=== PATIENT | female | born 1975 | race Caucasian/White ===

== ENCOUNTER → 2018-03-26 09:09 | Outpatient (CLI) | payer OTHER, SELFPAY ==
[2018-03-26 09:40] LABS: Add Manual Diff / Slide Review NO; Eosinophils Percent Auto 2.5 % (2-4); Hematocrit 40.7 % (36-46); Hemoglobin 13.6 g/dL (12.0-16.0); Lymphocytes Percent Auto 33.2 % (25-40); Mean Corpuscular HGB Conc 33.5 % (30-36); Mean Corpuscular Hemoglobin 29.6 PG (26-34); Mean Corpuscular Volume 88.5 fL (80-100); Monocytes Percent Auto 7.5 % (3-14); Neutrophils Absolute Auto 2900 /uL (3000-5900); Neutrophils Percent Auto 55.8 % (50-75); Platelet Count 235 X10^3/uL (150-400); Red Cell Distribution Width 13.3 % (11.6-14.8); White Blood Cell Count 5.2 X10^3/uL (4.5-11.0)
[2018-03-26 09:52] LABS: Alanine Aminotransferase 23 IU/L (9-52); Albumin 4.1 g/dL (3.5-5.0); Albumin Globulin Ratio 1.4 (1.0-2.8); Alkaline Phosphatase 48 U/L (38-126); Aspartate Aminotransferase 21 IU/L (14-36); BUN Creatinine Ratio 21.4 (6-22); Bilirubin Total 0.5 mg/dL (0.2-1.3); Blood Urea Nitrogen 15 mg/dL (7-17); Calcium 8.8 mg/dL (8.4-10.2); Carbon Dioxide 25 mmol/L (22-32); Chloride 108 mmol/L (98-107); Cholesterol 198 mg/dL (140-199); Estimated Glomerular Filt Rate > 60.0 mL/min (>60); Globulin 2.9 g/dL (1.7-4.1); Glucose 103 mg/dL (70-100); HDL Cholesterol 57 mg/dL (40-60); HEMOLYSIS < 15 (0-50); LDL Cholesterol Calculated 119 mg/dL (<100); Potassium 4.5 mmol/L (3.4-5.1); Sodium 140 mmol/L (137-145); Triglycerides 111 mg/dL (35-150)
[2018-03-26 10:00] LABS: HEMOLYSIS < 15 (0-50); Iron 90 ug/dL (37-170)
[2018-03-26 10:13] LABS: Percent Iron Saturation 28 % (15-50); Total Iron Binding Capacity 325 ug/dL (265-497); Transferrin 258 mg/dL (206-381)
[2018-03-26 10:20] LABS: Free T4, Direct Thyroxine 1.85 ng/dL (0.78-2.19)
[2018-03-26 10:25] LABS: Ferritin 11.3 ng/mL (6.27-137)
[2018-03-26 10:34] LABS: Thyroid Stimulating Hormone 0.21 uIU/mL (0.47-4.68)
== END ==
PROVIDERS: Family Provider Physician Assistant; PCP Physician Assistant; Visit Provider Physician Assistant
DX: E03.9 Hypothyroidism, unspecified (principal); N92.4 Excessive bleeding in the premenopausal period
CPT/HCPCS: 36415; 80053; 80061; 82728; 83540; 83550; 84439; 84443; 85025

== ENCOUNTER → 2018-06-30 09:12 | Outpatient (CLI) | payer OTHER, SELFPAY ==
--- NOTE | 2018-06-30 11:27 | DI.MG.S_ITS ---
BILATERAL DIGITAL SCREENING MAMMOGRAM 3D/2D WITH CAD: 06/30/2018 CLINICAL: Routine screening. Comparison is made to exam dated: 04/27/2016 mammogram - [facility]. There are scattered fibroglandular elements in both breasts. Current study was also evaluated with a Computer Aided Detection (CAD) system. No significant masses, calcifications, or other findings are seen in either breast. There has been no significant interval change. IMPRESSION: NEGATIVE There is no mammographic evidence of malignancy. A 1 year screening mammogram is recommended. This exam was interpreted at Station ID: [id number]. NOTE: For mammograms, a report in lay terms will be sent to the patient. Approximately 15% of breast malignancies will not be visualized mammographically. In the management of a palpable breast mass, a negative mammogram must not discourage biopsy of a clinically suspicious lesion. Electronically Signed By: Desirae johnson/florecita:06/30/2018 13:01:57 letter sent: Normal Exam ACR BI-RADS Category 1: Negative 3341F
[2018-06-30 12:40] LABS: Thyroid Stimulating Hormone 0.72 uIU/mL (0.47-4.68)
== END ==
PROVIDERS: Family Provider Physician Assistant; PCP Physician Assistant; Visit Provider Physician Assistant
DX: Z12.31 Encounter for screening mammogram for malignant neoplasm of breast (principal); E03.9 Hypothyroidism, unspecified; R79.89 Other specified abnormal findings of blood chemistry
CPT/HCPCS: 36415; 77063; 77067; 84443

== ENCOUNTER → 2019-07-03 10:52 | Outpatient (CLI) | payer OTHER, SELFPAY ==
--- NOTE | 2019-07-03 10:53 | DI.MG.S_ITS ---
BILATERAL DIGITAL SCREENING MAMMOGRAM 3D/2D WITH CAD: 07/03/2019 CLINICAL: Routine screening. Comparison is made to exams dated: 06/30/2018 mammogram - [facility] and 04/27/2016 mammogram - [facility]. There are scattered fibroglandular elements in both breasts. Current study was also evaluated with a Computer Aided Detection (CAD) system. No significant masses, calcifications, or other findings are seen in either breast. There has been no significant interval change. IMPRESSION: NEGATIVE There is no mammographic evidence of malignancy. A 1 year screening mammogram is recommended. This exam was interpreted at Station ID: [id number]. NOTE: For mammograms, a report in lay terms will be sent to the patient. Approximately 15% of breast malignancies will not be visualized mammographically. In the management of a palpable breast mass, a negative mammogram must not discourage biopsy of a clinically suspicious lesion. Electronically Signed By: Meredith miller/florecita:07/03/2019 12:40:31 letter sent: Normal Exam ACR BI-RADS Category 1: Negative 3341F
== END ==
PROVIDERS: Family Provider Physician Assistant; PCP Physician Assistant; Visit Provider Physician Assistant
DX: Z12.31 Encounter for screening mammogram for malignant neoplasm of breast (principal)
CPT/HCPCS: 77063; 77067

== ENCOUNTER → 2020-06-20 16:34 | Outpatient (CLI) | payer OTHER, SELFPAY ==
[2020-06-20 17:53] LABS: COVID19 -Nasal RAPID Negative (Negative)
== END ==
PROVIDERS: Family Provider Physician Assistant; PCP Physician Assistant; Visit Provider Physician Assistant
DX: Z11.59 Encounter for screening for other viral diseases (principal); J02.9 Acute pharyngitis, unspecified
CPT/HCPCS: 87070; 87077; 87147; 87635

== ENCOUNTER → 2021-05-24 16:23 | Outpatient (CLI) | payer OTHER, SELFPAY ==
[2021-05-26 14:13] LABS: Free T3, Triiodothyronine Free 3.69 pg/mL (2.77-5.27); Free T4, Direct Thyroxine 1.46 ng/dL (0.78-2.19)
[2021-05-26 14:27] LABS: Thyroid Stimulating Hormone 2.98 uIU/mL (0.47-4.68)
== END ==
PROVIDERS: Family Provider Physician Assistant; PCP Student in an Organized Health Care Education/Training Program; Referring Provider Student in an Organized Health Care Education/Training Program; Visit Provider Student in an Organized Health Care Education/Training Program
DX: E03.9 Hypothyroidism, unspecified (principal)
CPT/HCPCS: 36415; 84439; 84443; 84481

== ENCOUNTER 2021-07-21 09:45 | Outpatient (RCR) | payer OTHER, SELFPAY ==
--- NOTE | 2021-06-30 15:57 | PT.OIE ---
Current Diagnoses Other female genital prolapse (06/30/21) Past Medical History (Last Updated 05/28/21 @ 09:23 by Misael Garvin MD) Allergic rhinitis (01/09/11) Diverticular disease (Unknown) History of mandibular surgery (1989) History of surgery (1974) Hypothyroidism (Unknown) Past Surgical History (Last Updated 01/15/18 @ 14:38 by Laura Jacobsen LPN) History of mandibular surgery (1989) History of surgery (1974) History of tonsillectomy Visit Care Team Role Provider Type Fabiola Taylor PA-C Family Provider Advanced Post Office Clerk Specialty: Medical Address: [address], [facility] Email: [email or web address] Misael Garvin MD Attending Provider Physician Primary Care Provider Referring Provider Specialty: Internal Medicine Address: [address] [place] [address], [facility] Email: [email or web address] Physical Therapy Initial Evaluation PT-OP-A Visit Information Start: 06/30/21 07:28 Freq: Status: Active Protocol: Document 06/30/21 08:15 AMB (Rec: 06/30/21 11:58 AMB [email or web address]) Out-Patient Physical Therapy Visit Information Visit Information Visit Type Initial Evaluation Visit Start Time 08:15 Visit Stop Time 09:00 Total Visit Minutes 45 Visit Number 1 PT-OP-B Current Condition Start: 06/30/21 07:28 Freq: Status: Active Protocol: Document 06/30/21 08:15 AMB (Rec: 06/30/21 09:11 AMB [id number]) Current Condition History of Current Condition Onset Date 2008 Current Complaints prolapse History of Current Condition Dennis had a baby in 2008. Slowly worsening prolapse since that time. Has to stand up and let urine be caught in toilet paper after voiding urine, but that is the only leaking she has. Had an episiotomy and probably over 2 hours of pushing. Denies chronic constipation and chronic cough, although did have one episode of bad constipation where she had to vaginally splint. Low back drives me crazy, feels like core is weak. Prior Functional Status Baseline Function- ADL's Independent Baseline Function- Mobility Independent Current Functional Impairments (Reported) Functional Limitations- ADL's Denies discomfort from prolapse, more difficulty with inability to get urine out all the way with voiding. Personal Factors Other Personal Factors That May Effect Low back pain Therapy/Recovery PT-OP-I Pelvic Floor Start: 06/30/21 07:28 Freq: Status: Active Protocol: Document 06/30/21 08:15 AMB (Rec: 06/30/21 15:57 AMB [email or web address]) Pelvic Floor Assessment Urine Pelvic Floor Surgery No Urinary Symptoms Prolapse,Incomplete Emptying, Falling Out Feeling/Heavy Leakage Size Small Leaks Per Day 3/week Voiding Frequency 2-3 hours Nocturia 2 Bowel Other Bowel Symptoms denies constipation Prolapse Cystocele Grade 2 Rectocele Grade 3 Perineal Descent Resting Present Bearing Present Contraction Ability Voluntary Contraction Moderate Voluntary Relaxation Moderate Manual Muscle Testing Left 3 Manual Muscle Testing Right 3 Manual Muscle Testing Anterior 3 Manual Muscle Testing Posterior 4 Muscle Endurance (Seconds) 15 Number of Quick Contractions In 10 5 Seconds PT-OP-T Assessment and Plan Start: 06/30/21 07:28 Freq: Status: Active Protocol: Document 06/30/21 08:15 AMB (Rec: 06/30/21 15:57 AMB [email or web address]) Physical Therapy Assessment Rehab Potential Rehabilitation Potential Good Evaluation Complexity Number of Personal Factors/Comorbidities 1-2 Number of Body Systems Impaired 1-2 Clinical Presentation at Evaluation Stable Impairments Impairments Functional Activities, Functional Mobility Goals Two Impairment Prolapse Long-Term Goal (LTG) Mona will void completely without leaking afterwards. LTG Duration 8 weeks One Impairment Strength Short Term Goal (STG) Mona will contract her pelvic floor in standing for 10 seconds. STG Duration 4 weeks Hvac Services Professional Goal (LTG) Mona will contract her pelvic floor while moving from sit to stand. LTG Duration 8 weeks Assessment Summary Assessment Mona attends physical therapy with a long history of prolapse that is making it difficult for her to completely void urine so that she leaks when she stands up from voiding. She had decent strength but could improve and will benefit from behavioral training as well. She will benefit from physical therapy to continue to instruct in an appropriate pelvic floor and core strengthening program. Physical Therapy Plan Frequency and Duration Frequency of Treatment 1x/Week Duration of Treatment 8 weeks Plan of Care Start Date 06/30/21 Plan of Care End Date 08/25/21 Therapeutic Interventions Therapeutic Interventions Home Exercise Program,Manual Therapy,Neuromuscular Re- education,Self-Care/Home Management,Soft Tissue Mobilization,Therapeutic Activities,Therapeutic Exercises Modalities Biofeedback,Electric Stimulation Next Visit Focus/Plan Next Note Type Treatment Note Next Visit Plan follow up on quick flicks and long holds, start with sEMG, progress to katelyn pelvic floor while working on TA too .
--- NOTE | 2021-06-30 15:58 | PT.OPPOC ---
Physical, Occupational & Speech Therapy At [facility] Current Diagnoses Other female genital prolapse (06/30/21) Visit Care Team Role Provider Type Fabiola Taylor PA-C Family Provider Advanced Product Manager Medical Device Specialty: Medical Address: [facility], [address] [place], [address] Email: [email or web address] Misael Garvin MD Attending Provider Physician Primary Care Provider Referring Provider Specialty: Internal Medicine Address: [address] [place] [address], [facility] [address], [address] Email: [email or web address] Plan Of Care PT-OP-T Assessment and Plan Start: 06/30/21 07:28 Freq: Status: Active Protocol: Document 06/30/21 08:15 AMB (Rec: 06/30/21 15:57 AMB [email or web address]) Physical Therapy Assessment Rehab Potential Rehabilitation Potential Good Evaluation Complexity Number of Personal Factors/Comorbidities 1-2 Number of Body Systems Impaired 1-2 Clinical Presentation at Evaluation Stable Impairments Impairments Functional Activities, Functional Mobility Goals Two Impairment Prolapse Shearing Machine Tender Goal (LTG) Mona will void completely without leaking afterwards. LTG Duration 8 weeks One Impairment Strength Short Term Goal (STG) Mona will contract her pelvic floor in standing for 10 seconds. STG Duration 4 weeks Shearing Machine Tender Goal (LTG) Mona will contract her pelvic floor while moving from sit to stand. LTG Duration 8 weeks Assessment Summary Assessment oMna attends physical therapy with a long history of prolapse that is making it difficult for her to completely void urine so that she leaks when she stands up from voiding. She had decent strength but could improve and will benefit from behavioral training as well. She will benefit from physical therapy to continue to instruct in an appropriate pelvic floor and core strengthening program. Physical Therapy Plan Frequency and Duration Frequency of Treatment 1x/Week Duration of Treatment 8 weeks Plan of Care Start Date 06/30/21 Plan of Care End Date 08/25/21 Therapeutic Interventions Therapeutic Interventions Home Exercise Program,Manual Therapy,Neuromuscular Re- education,Self-Care/Home Management,Soft Tissue Mobilization,Therapeutic Activities,Therapeutic Exercises Modalities Biofeedback,Electric Stimulation Next Visit Focus/Plan Next Note Type Treatment Note Next Visit Plan follow up on quick flicks and long holds, start with sEMG, progress to katelyn pelvic floor while working on TA too . Plan of Care Dates Plan of Care Start Date 06/30/21 Plan of Care End Date 08/25/21 Electronically Signed by: Demetrice Ocampo, PT 06/30/21 [id number] Please Sign and Return: I have reviewed this Plan of Care and certify that the skilled therapy services above are required to meet the patient?s needs. Physician Signature Date Printed Name and Credentials Clinical Instructor Signature Printed Name and Credentials
--- NOTE | 2021-07-14 11:56 | PT.OTN ---
Current Diagnoses Other female genital prolapse (07/14/21) Physical Therapy Treatment Note PT-OP-A Visit Information Start: 06/30/21 07:28 Freq: Status: Active Protocol: Document 07/14/21 09:44 AMB (Rec: 07/14/21 10:17 AMB [id number]) Out-Patient Physical Therapy Visit Information Visit Information Visit Type Treatment Note Visit Start Time 09:45 Visit Stop Time 10:30 Total Visit Minutes 45 Visit Number 2 PT-OP-B Current Condition Start: 06/30/21 07:28 Freq: Status: Active Protocol: Document 06/30/21 08:15 AMB (Rec: 06/30/21 09:11 AMB [id number]) Current Condition History of Current Condition Onset Date 2008 Current Complaints prolapse History of Current Condition Dennis had a baby in 2008. Slowly worsening prolapse since that time. Has to stand up and let urine be caught in toilet paper after voiding urine, but that is the only leaking she has. Had an episiotomy and probably over 2 hours of pushing. Denies chronic constipation and chronic cough, although did have one episode of bad constipation where she had to vaginally splint. Low back drives me crazy, feels like core is weak. Prior Functional Status Baseline Function- ADL's Independent Baseline Function- Mobility Independent Current Functional Impairments (Reported) Functional Limitations- ADL's Denies discomfort from prolapse, more difficulty with inability to get urine out all the way with voiding. Personal Factors Other Personal Factors That May Effect Low back pain Therapy/Recovery PT-OP-C Subjective Start: 06/30/21 07:28 Freq: Status: Active Protocol: Document 07/14/21 09:45 AMB (Rec: 07/14/21 11:56 AMB [email or web address]) OP-PT Subjective Patient Comments Patient Comments Mona stated that she is doing her exercises seated mostly, the long holds are more challenging. PT-OP-I Pelvic Floor Start: 06/30/21 07:28 Freq: Status: Active Protocol: Document 06/30/21 08:15 AMB (Rec: 06/30/21 15:57 AMB [email or web address]) Pelvic Floor Assessment Urine Pelvic Floor Surgery No Urinary Symptoms Prolapse,Incomplete Emptying, Falling Out Feeling/Heavy Leakage Size Small Leaks Per Day 3/week Voiding Frequency 2-3 hours Nocturia 2 Bowel Other Bowel Symptoms denies constipation Prolapse Cystocele Grade 2 Rectocele Grade 3 Perineal Descent Resting Present Bearing Present Contraction Ability Voluntary Contraction Moderate Voluntary Relaxation Moderate Manual Muscle Testing Left 3 Manual Muscle Testing Right 3 Manual Muscle Testing Anterior 3 Manual Muscle Testing Posterior 4 Muscle Endurance (Seconds) 15 Number of Quick Contractions In 10 5 Seconds PT-OP-Q Treatments Start: 06/30/21 07:28 Freq: Status: Active Protocol: Document 07/14/21 09:45 AMB (Rec: 07/14/21 11:56 AMB [email or web address]) Therapeutic Exercises Supine Exercises 1 Supine Exercise Name supine march with TA and pelvic floor Sitting Exercises 1 Sitting Exercise Name sit to stand Comments contract pelvic floor Neuro Re-Education Treatment Other Activities 1 Details sEMG Comments quick flicks, long holds, then roll ins good hold PT-OP-T Assessment and Plan Start: 06/30/21 07:28 Freq: Status: Active Protocol: Document 07/14/21 09:44 AMB (Rec: 07/14/21 10:17 AMB [id number]) Physical Therapy Assessment Goals Two Impairment Prolapse Staple Processing Machine Operator Goal (LTG) Mona will void completely without leaking afterwards. LTG Duration 8 weeks One Impairment Strength Short Term Goal (STG) Mona will contract her pelvic floor in standing for 10 seconds. STG Duration 4 weeks Longterm Goal (LTG) Mona will contract her pelvic floor while moving from sit to stand. LTG Duration 8 weeks Assessment Summary Assessment sEMG ax 31, avg 15 for long holds. for quick flicks max 19, avg 8. Good understanding of pelvic floor contract, did ask pt to try to contract when moving from sit to stand. Physical Therapy Plan Next Visit Focus/Plan Next Note Type Treatment Note Next Visit Plan follow up on quick flicks and long holds, start with sEMG, progress to katelyn pelvic floor while working on TA too .
--- NOTE | 2021-07-21 11:37 | PT.OTN ---
Current Diagnoses Other female genital prolapse (07/21/21) Physical Therapy Treatment Note PT-OP-A Visit Information Start: 06/30/21 07:28 Freq: Status: Active Protocol: Document 07/21/21 09:45 AMB (Rec: 07/21/21 10:33 AMB [id number]) Out-Patient Physical Therapy Visit Information Visit Information Visit Type Treatment Note Visit Start Time 09:45 Visit Stop Time 10:30 Total Visit Minutes 45 Visit Number 3 PT-OP-B Current Condition Start: 06/30/21 07:28 Freq: Status: Active Protocol: Document 06/30/21 08:15 AMB (Rec: 06/30/21 09:11 AMB [id number]) Current Condition History of Current Condition Onset Date 2008 Current Complaints prolapse History of Current Condition Dennis had a baby in 2008. Slowly worsening prolapse since that time. Has to stand up and let urine be caught in toilet paper after voiding urine, but that is the only leaking she has. Had an episiotomy and probably over 2 hours of pushing. Denies chronic constipation and chronic cough, although did have one episode of bad constipation where she had to vaginally splint. Low back drives me crazy, feels like core is weak. Prior Functional Status Baseline Function- ADL's Independent Baseline Function- Mobility Independent Current Functional Impairments (Reported) Functional Limitations- ADL's Denies discomfort from prolapse, more difficulty with inability to get urine out all the way with voiding. Personal Factors Other Personal Factors That May Effect Low back pain Therapy/Recovery PT-OP-C Subjective Start: 06/30/21 07:28 Freq: Status: Active Protocol: Document 07/21/21 09:45 AMB (Rec: 07/21/21 11:37 AMB [email or web address]) OP-PT Subjective Patient Comments Patient Comments Mona has tried katelyn pelvic floor after voiding and then that makes her leak when she lets go of the kegel once in standing. PT-OP-I Pelvic Floor Start: 06/30/21 07:28 Freq: Status: Active Protocol: Document 06/30/21 08:15 AMB (Rec: 06/30/21 15:57 AMB [email or web address]) Pelvic Floor Assessment Urine Pelvic Floor Surgery No Urinary Symptoms Prolapse,Incomplete Emptying, Falling Out Feeling/Heavy Leakage Size Small Leaks Per Day 3/week Voiding Frequency 2-3 hours Nocturia 2 Bowel Other Bowel Symptoms denies constipation Prolapse Cystocele Grade 2 Rectocele Grade 3 Perineal Descent Resting Present Bearing Present Contraction Ability Voluntary Contraction Moderate Voluntary Relaxation Moderate Manual Muscle Testing Left 3 Manual Muscle Testing Right 3 Manual Muscle Testing Anterior 3 Manual Muscle Testing Posterior 4 Muscle Endurance (Seconds) 15 Number of Quick Contractions In 10 5 Seconds PT-OP-Q Treatments Start: 06/30/21 07:28 Freq: Status: Active Protocol: Document 07/21/21 09:45 AMB (Rec: 07/21/21 11:36 AMB [email or web address]) Therapeutic Exercises Supine Exercises 2 Supine Exercise Name roll in/roll out Comments with #3 t band 1 Supine Exercise Name supine march with TA and pelvic floor Comments added table top tap down Sitting Exercises 1 Sitting Exercise Name sit to stand Comments contract pelvic floor PT-OP-T Assessment and Plan Start: 06/30/21 07:28 Freq: Status: Active Protocol: Document 07/21/21 09:45 AMB (Rec: 07/21/21 11:36 AMB [email or web address]) Physical Therapy Assessment Goals Two Impairment Prolapse Law Professor Goal (LTG) Mona will void completely without leaking afterwards. LTG Duration 8 weeks One Impairment Strength Short Term Goal (STG) Mona will contract her pelvic floor in standing for 10 seconds. STG Duration 4 weeks Law Professor Goal (LTG) Mona will contract her pelvic floor while moving from sit to stand. LTG Duration 8 weeks Assessment Summary Assessment Mona is doing well with her exercises, but continues to have leaking when standing up from the toilet. Physical Therapy Plan Next Visit Focus/Plan Next Note Type Treatment Note Next Visit Plan Follow up on roll in and roll out exercises with tap down with TA and pelvic floor
--- NOTE | 2021-10-02 15:52 | PT.OPDS ---
Current Diagnoses Other female genital prolapse (07/21/21) Visit Care Team Role Provider Type Fabiola Taylor PA-C Family Provider Advanced Radioisotope Production Operator Specialty: Medical Address: [facility], [address] [place] [address], [id number] Email: [email or web address] Misael Garvin MD Attending Provider Physician Primary Care Provider Referring Provider Specialty: Internal Medicine Address: [address] [place] [address], [facility] [[email or web address] [address], [place], [address] Email: [email or web address] Visit Number Visit Number 3 Discharge Summary PT-OP-B Current Condition Start: 06/30/21 07:28 Freq: Status: Active Protocol: Document 06/30/21 08:15 AMB (Rec: 06/30/21 09:11 AMB [id number]) Current Condition History of Current Condition Onset Date 2008 Current Complaints prolapse History of Current Condition Dennis had a baby in 2008. Slowly worsening prolapse since that time. Has to stand up and let urine be caught in toilet paper after voiding urine, but that is the only leaking she has. Had an episiotomy and probably over 2 hours of pushing. Denies chronic constipation and chronic cough, although did have one episode of bad constipation where she had to vaginally splint. Low back drives me crazy, feels like core is weak. Prior Functional Status Baseline Function- ADL's Independent Baseline Function- Mobility Independent Current Functional Impairments (Reported) Functional Limitations- ADL's Denies discomfort from prolapse, more difficulty with inability to get urine out all the way with voiding. Personal Factors Other Personal Factors That May Effect Low back pain Therapy/Recovery PT-OP-C Subjective Start: 06/30/21 07:28 Freq: Status: Active Protocol: Document 07/21/21 09:45 AMB (Rec: 07/21/21 11:37 AMB [email or web address]) OP-PT Subjective Patient Comments Patient Comments Mona has tried katelyn pelvic floor after voiding and then that makes her leak when she lets go of the kegel once in standing. PT-OP-I Pelvic Floor Start: 06/30/21 07:28 Freq: Status: Active Protocol: Document 06/30/21 08:15 AMB (Rec: 06/30/21 15:57 AMB [email or web address]) Pelvic Floor Assessment Urine Pelvic Floor Surgery No Urinary Symptoms Prolapse,Incomplete Emptying, Falling Out Feeling/Heavy Leakage Size Small Leaks Per Day 3/week Voiding Frequency 2-3 hours Nocturia 2 Bowel Other Bowel Symptoms denies constipation Prolapse Cystocele Grade 2 Rectocele Grade 3 Perineal Descent Resting Present Bearing Present Contraction Ability Voluntary Contraction Moderate Voluntary Relaxation Moderate Manual Muscle Testing Left 3 Manual Muscle Testing Right 3 Manual Muscle Testing Anterior 3 Manual Muscle Testing Posterior 4 Muscle Endurance (Seconds) 15 Number of Quick Contractions In 10 5 Seconds PT-OP-T Assessment and Plan Start: 06/30/21 07:28 Freq: Status: Active Protocol: Document 10/02/21 15:50 AMB (Rec: 10/02/21 15:52 AMB [id number]) Physical Therapy Assessment Goals Two Impairment Prolapse Technical Stenographer Goal (LTG) Mona will void completely without leaking afterwards. LTG Duration 8 weeks One Impairment Strength Short Term Goal (STG) Mona will contract her pelvic floor in standing for 10 seconds. STG Duration 4 weeks Technical Stenographer Goal (LTG) Mona will contract her pelvic floor while moving from sit to stand. LTG Duration 8 weeks Assessment Summary Assessment Mona has not attended physical therapy in the past 2 months. she canceled her remaining appointments. At her last scheduled appointment (she attended a total of 3) she was doing her exercises but was continuing to have symptoms when standing up from the toilet. Physical Therapy Plan Discharge Physical Therapy Discharge Reasons No Longer Attending PT
== END 2021-10-03 09:34 ==
LOC: PHYS 09:45
PROVIDERS: Family Provider Physician Assistant; PCP Student in an Organized Health Care Education/Training Program; Referring Provider Student in an Organized Health Care Education/Training Program; Visit Provider Student in an Organized Health Care Education/Training Program
DX: N81.89 Other female genital prolapse (principal)
CPT/HCPCS: 97110; 97112; 97161

== ENCOUNTER → 2022-04-06 11:18 | Outpatient (CLI) | payer OTHER, SELFPAY ==
--- NOTE | 2022-04-06 11:20 | DI.MG.S_ITS ---
BILATERAL DIGITAL SCREENING MAMMOGRAM 3D/2D WITH CAD: 04/06/2022 CLINICAL: Routine screening. Comparison is made to exams dated: 06/30/2018 mammogram - [facility] and 04/27/2016 mammogram - [facility]. There are scattered areas of fibroglandular density in both breasts (category b / 25%-50% glandular tissue). Current study was also evaluated with a Computer Aided Detection (CAD) system. No significant masses, calcifications, or other findings are seen in either breast. There has been no significant interval change. IMPRESSION: NEGATIVE There is no mammographic evidence of malignancy. A 1 year screening mammogram is recommended. Based on the Tyrer Cuzick model (a risk assessment model) the patient's lifetime risk is 11.5% and her 10 year risk is 2.4%. According to the ACR, ACS, and NCCN guidelines, an annual breast MRI exam along with mammogram is recommended if the patient's lifetime risk is 20% or greater. This exam was interpreted at Station ID: [id number]. NOTE: For mammograms, a report in lay terms will be sent to the patient. Approximately 15% of breast malignancies will not be visualized mammographically. In the management of a palpable breast mass, a negative mammogram must not discourage biopsy of a clinically suspicious lesion. Electronically Signed By: Diego bhatt/florecita:04/06/2022 13:47:28 letter sent: Normal Exam ACR BI-RADS Category 1: Negative 3341F
== END ==
PROVIDERS: Family Provider Physician Assistant; PCP Student in an Organized Health Care Education/Training Program; Referring Provider Student in an Organized Health Care Education/Training Program; Visit Provider Student in an Organized Health Care Education/Training Program
DX: Z12.31 Encounter for screening mammogram for malignant neoplasm of breast (principal)
CPT/HCPCS: 77063; 77067

== ENCOUNTER → 2023-09-06 09:42 | Outpatient (CLI) | payer OTHER, SELFPAY ==
[2023-09-06 10:30] LABS: Add Manual Diff / Slide Review NO; Basophils Absolute Auto 0 /uL (0-100); Basophils Percent Auto 0.8 % (0-2); Eosinophils Absolute Auto 200 /uL (0-450); Eosinophils Percent Auto 3.2 % (2-4); Hematocrit 36.6 % (36-46); Hemoglobin 12.1 g/dL (12.0-16.0); Lymphocytes Absolute Auto 1800 /uL (1100-4500); Lymphocytes Percent Auto 31.1 % (25-40); Mean Corpuscular HGB Conc 33.1 % (30-36); Mean Corpuscular Volume 84.5 fL (80-100); Monocytes Absolute Auto 500 /uL (0-900); Monocytes Percent Auto 7.8 % (3-14); Neutrophils Absolute Auto 3400 /uL (1500-7000); Neutrophils Percent Auto 57.1 % (50-75); Platelet Count 284 X10^3/uL (150-400); Red Blood Cell Count 4.33 X10^6/uL (4.0-5.2); Red Cell Distribution Width 14.5 % (11.6-14.8); White Blood Cell Count 5.9 X10^3/uL (4.5-11.0)
[2023-09-06 11:03] LABS: Alanine Aminotransferase 23 IU/L (<35); Albumin 4.1 g/dL (3.5-5.0); Albumin Globulin Ratio 1.3 (1.0-2.8); Alkaline Phosphatase 56 U/L (38-126); Aspartate Aminotransferase 27 IU/L (14-36); BUN Creatinine Ratio 20.3 (6-22); Bilirubin Total 0.5 mg/dL (0.2-1.3); Blood Urea Nitrogen 14 mg/dL (7-17); Calcium 9.4 mg/dL (8.4-10.2); Carbon Dioxide 26 mmol/L (22-32); Chloride 103 mmol/L (98-107); Cholesterol 243 mg/dL (140-199); Estimated Glomerular Filt Rate > 60 mL/min (>60); Globulin 3.2 g/dL (1.7-4.1); Glucose 101 mg/dL (70-100); HDL Cholesterol 66 mg/dL (40-60); HEMOLYSIS < 15 (0-50); LDL Cholesterol Calculated 140 mg/dL (<100); Potassium 4.3 mmol/L (3.4-5.1); Sodium 136 mmol/L (137-145); Total Protein 7.3 g/dL (6.3-8.2); Triglycerides 183 mg/dL (35-150)
[2023-09-06 11:16] LABS: Free T3, Triiodothyronine Free 2.85 pg/mL (2.77-5.27); Free T4, Direct Thyroxine 1.53 ng/dL (0.78-2.19)
[2023-09-06 11:21] LABS: Hemoglobin A1C% w Est Avg Glu 5.2 % (4.0-6.0)
[2023-09-06 11:29] LABS: Thyroid Stimulating Hormone 9.56 uIU/mL (0.47-4.68)
[2023-09-06 11:49] LABS: HIV 1 & 2 Ab/Ag 4th Gen Combo NEGATIVE (NEGATIVE); Hep C Virus Ab w/Reflex Quant NEGATIVE s/c (NEGATIVE)
[2023-09-06 11:51] LABS: Vitamin B12 514 pg/mL (239-931)
== END ==
PROVIDERS: Family Provider Physician Assistant; PCP Family Medicine; Referring Provider Family Medicine; Visit Provider Family Medicine
DX: Z11.59 Encounter for screening for other viral diseases (principal); Z11.4 Encounter for screening for human immunodeficiency virus [HIV]; F32.81 Premenstrual dysphoric disorder; E03.9 Hypothyroidism, unspecified; E66.9 Obesity, unspecified; R20.0 Anesthesia of skin; N32.89 Other specified disorders of bladder
CPT/HCPCS: 36415; 80053; 80061; 82607; 83036; 84439; 84443; 84481; 85025; 86803; 87389

== ENCOUNTER → 2024-01-10 11:25 | Outpatient (CLI) | payer OTHER, SELFPAY ==
--- NOTE | 2024-01-10 11:28 | DI.RAD.S_ITS ---
PROCEDURE: XR CHEST 2V INDICATIONS: Chronic cough, wheezing for 6 weeks TECHNIQUE: 2 views of the chest were acquired. COMPARISON: None. FINDINGS: Surgical changes and devices: None. Lungs and pleura: Lungs are clear. No pleural effusions or pneumothorax. Peribronchial cuffing. Mediastinum: Mediastinal contours are normal. Heart size is normal. Bones and chest wall: No suspicious bony abnormalities. Soft tissues appear unremarkable. IMPRESSION: Peribronchial cuffing, typically indicating infectious or inflammatory bronchitis. Dictated by: Viral Herrera M.D. on 01/10/2024 at 14:49 Approved by: Viral Herrera M.D. on 01/10/2024 at 14:49
== END ==
PROVIDERS: Family Provider Physician Assistant; PCP Family Medicine; Referring Provider Family Medicine; Visit Provider Family Medicine
DX: R05.3 Chronic cough (principal)
CPT/HCPCS: 71046

== ENCOUNTER 2024-02-10 21:06 | Emergency (ER) | payer OTHER, SELFPAY ==
[2024-02-10 21:50] VITALS: BP 127/81; PULSE 91; RESP 18; TEMP 37.1; O2SAT 98; BMI 21.4
[2024-02-11 00:14] VITALS: BP 138/88; PULSE 90; RESP 18; O2SAT 97
--- NOTE | 2024-02-11 02:18 | ED_ITS ---
HPI - Abdominal Pain General Chief Complaint: Urogenital-Female Stated Complaint: severe rectal pain Time Seen by Provider: 02/11/24 01:51 Source: patient Mode of arrival: Family Vehicle History of Present Illness HPI narrative: Patient is a 48-year-old healthy female who presents today with rectal pain. She reports she does have a history of hemorrhoids but over last week her rectal pain has gotten significantly worse. She has been doing Sitz bath which is the only thing that helps. The topical hxro-hbf-akverti steroid cream does not work. She does some blood when she wipes. She is made sure that she does not get constipated she is taking MiraLax she is having bowel movements. She feels a little bit bloated but severe rectal pain. No fever chills nausea or vomiting. This feels like her regular hemorrhoids but they are just not going away. She is also tried topical lidocaine and that also does not help. Related Data Home Medications Medication Instructions Recorded Confirmed MULTIVITAMIN (Fruity Vitamin) 1 ctb PO Q DAY ##0 07/11/11 01/08/24 oxybutynin chloride 5 mg tablet 5 mg PO BEDTIME PRN 09/06/23 01/08/24 levothyroxine 150 mcg capsule 150 mcg PO DAILY 01/08/24 01/08/24 Previous Rx's Medication Instructions Recorded semaglutide 0.25 mg or 0.5 mg (2 0.25 mg (0.368 mL) SUBCUT QWEEK #3 02/04/24 mg/3 mL) subcutaneous pen injector mL hydrocortisone acetate 25 mg 25 mg SC BEDTIME PRN hemorrhoids 7 02/11/24 rectal suppository (Anusol-HC) weeks #24 ea Allergies Allergy/AdvReac Type Severity Reaction Status Date / Time benzonatate Allergy Severe Hives Verified 02/04/24 13:40 Sulfa (Sulfonamide Allergy Severe SEVERE RASH Verified 02/04/24 13:40 Antibiotics) [SULFA (SULFONAMIDE ANTIBIOTICS)] Patient History Medical History Diverticular disease (Unknown) Hypothyroidism (Unknown) Allergic rhinitis (01/09/11) Surgical History History of surgery (1974) History of mandibular surgery (1989) History of tonsillectomy Family History Mother Hypothyroidism, unspecified type Essential hypertension Grandfather Myocardial infarction Social History Smoking Status: Never smoker Smoking Status: Never smoker Exam Initial Vital Signs Initial Vital Signs: Vital Signs Temperature 98.8 F 02/10/24 21:50 Pulse Rate 91 H 02/10/24 21:50 Respiratory Rate 18 02/10/24 21:50 Blood Pressure 127/81 02/10/24 21:50 Pulse Oximetry 98 02/10/24 21:50 Oxygen Delivery Method Room Air 02/10/24 21:50 GENERAL: Tearful alert 48-year-old female CARDIOVASCULAR: peripheral pulses in tact, cap refill <2 sec RESPIRATORY: No respiratory distress, speaks in full sentences without difficulty ABDOMEN: Soft, nontender, no guarding or rebound RECTAL: No external hemorrhoids no thrombosed hemorrhoid rectal exam extremely tender internal hemorrhoids patient really did not tolerate internal exam EXTREMITIES: Normal range of motion, no clubbing or edema. Neurovascularly intact NEUROLOGICAL: Cranial nerves II through XII grossly intact. Normal gait and speech. SKIN: Warm, dry, no petechiae, no rashes or lesions. Course Orders Ordered: Discontinued Medications Hydrocortisone (Hydrocortisone 25 Mg Supp) 25 mg SC NOW ONE Stop: 02/11/24 02:29 Last Admin: 02/11/24 02:43 Dose: Not Given Documented By: NARCISO Phenyleph/Shark Oil/Min Oil/Petrol (Phenyleph/Mineral Oil/Petrolat 57 Gm Oint) 1 applic SC PRN PRN PRN Reason: Hemorrhoids Vital Signs Vital signs: Vital Signs - 8 hr 02/11/24 00:14 02/11/24 03:02 Pulse Rate 90 91 H Respiratory Rate 18 18 Blood Pressure 138/88 133/95 H Pulse Oximetry 97 98 Oxygen Delivery Method Room Air Room Air MDM - Abdominal Pain MDM Narrative Medical decision making narrative: Patient 48-year-old female history of hemorrhoids presenting today is rectal pain ongoing for about 1 week. She has no external hemorrhoids no significant thrombosed hemorrhoid. But she definitely is tender on internal exam. History and exam consistent with internal hemorrhoids. Unfortunately we do not have any sort of suppositories here for her. She is fine with going home and getting a prescription. No concern for abscess bowel obstruction or other etiology at this time. Discharge Plan Departure Patient Disposition: Home Clinical Impression: Hemorrhoids Instructions: DI for Hemorrhoids Activity Restrictions/Additional Instructions: *You have been diagnosed with hemorrhoids *What to do: At this time you do need suppositories continue the Sitz baths. I do recommend that you be evaluated by General surgery or GI for hemorrhoid surgery Continue MiraLax do not get constipated *Continue to take medications as directed Anusol suppository--> [email or web address] can start tomorrow any time *Follow up with your primary care provider in 2-3 days or call [phone] *Return to ER if you should have increasing pain increasing bleeding or any new, worsening or concerning symptoms Prescriptions: New hydrocortisone acetate [Anusol-HC] 25 mg suppository 25 mg SC BEDTIME PRN (Reason: hemorrhoids) 49 Days Qty: 24 0RF No Action oxybutynin chloride 5 mg tablet 5 mg PO BEDTIME PRN levothyroxine 150 mcg capsule 150 mcg PO DAILY semaglutide 0.25 mg or 0.5 mg (2 mg/3 mL) pen injector 0.25 mg SUBCUT QWEEK Qty: 3 2RF Rx Instructions: for 4 weeks; then increase to 0.5 mg every week MULTIVITAMIN (Fruity Vitamin) 1 ctb PO Q DAY Qty: 0 Referrals: Krunal Albarado MD [Primary Care Provider] - Stand Alone Forms: Patient Portal/API
[2024-02-11 03:02] VITALS: BP 133/95; PULSE 91; RESP 18; O2SAT 98
== END 2024-02-11 03:03 | disposition home or self-care (01) ==
PROVIDERS: Emergency Provider Emergency Medicine; Family Provider Physician Assistant; PCP Family Medicine
DX: K64.9 Unspecified hemorrhoids (principal)
CPT/HCPCS: 99281; 99283

== ENCOUNTER 2024-02-21 13:58 | Day surgery (SDC) | payer OTHER, SELFPAY ==
[2024-02-20 14:54] VITALS: BMI 31.7
--- NOTE | 2024-02-21 | PATH_ITS ---
[facility] Accession Number: [id number] No. of containers..01 Tissue . 01 Material submitted: . hemorrhoids - HEMORRHOID . 01 Diagnosis: HEMORRHOID, EXCISION: Benign hemorrhoid tissue. No evidence of neoplasm. MRV 02/26/2024 1746 Local . 01 Electronically signed: . Nahun Oakes MD, PhD, Pathologist NPI- [id number] . 01 Gross description: . HEMORRHOID: Received in formalin is 1 fragment of hays soft tissue measuring 2.0 x 1.2 x 1.1 cm. Tissue is inked. Specimen is sectioned and submitted in chemical sales representative sections in 1 cassette. /BRADY 02/25/2024 0121 Local . 01 Pathologist provided ICD-10: K64.9 . 01 CPT . 883030 Specimen Comment: A courtesy copy of this report has been sent to [phone] Performed at: [address] [facility] [address], [place], [place] [id number] MD Vlad Felix MD Phone: [phone]
[2024-02-21] MEDS: LACTATED RINGERS 1,000 ML 21 ML IV (14:17)
[2024-02-21 14:32] VITALS: BP 131/84; PULSE 90; RESP 16; TEMP 37.2; O2SAT 97; BMI 31.7
--- NOTE | 2024-02-21 14:48 | PM.PREOP ---
Pre-operative Note Interval Note History & Physical reviewed/Exam performed by Physician: Yes Changes to H&P: No
--- NOTE | 2024-02-21 15:00 | SUR.OPER ---
Lithotomy on padded OR bed, head on pillow, arms secured on padded arm boards at <90 degrees abduction. Legs secured in padded yellow fins stirrups.
[2024-02-21] MEDS: EPINEPHRINE INJ (15:13)
[2024-02-21] MEDS: BUPIVACAINE 0.25% INJ (15:13)
[2024-02-21] MEDS: BUPIVACAINE LIPOSOME 266 MG/20 ML VIAL INJ (15:14)
[2024-02-21 15:45] VITALS: BP 104/59; PULSE 93; RESP 16; TEMP 36.6; O2SAT 96
[2024-02-21 15:50] VITALS: BP 129/76; PULSE 94; RESP 18; O2SAT 94
--- NOTE | 2024-02-21 15:53 | P.OP_ITS ---
Operative Date/Time/Diagnoses Date of procedure: 02/21/24 Time of procedure: 15:53 Pre-op diagnosis: rectal pain Post-op diagnosis: other (internal hemorrhoids) Procedure & Clinicians Procedure: excisional hemorrhoidectomy x 2 Same procedure as scheduled: Yes Indications: 49 y.o woman with rectal pain here for exam under anesthesia and hemo rrhoidectomy Surgeon: Yasir Sims Click Yes if Unassisted: Yes Anesthesia Type: General Operative Notes Findings: Congested ulcerated hemorrhoids with both internal and external component Specimen(s): other (Hemorrhoids) Estimated Blood Loss (mL): 30 Procedure in detail: Patient was brought to the operating room placed supine on the table. Bilateral lower extremity compression devices were applied. General anesthesia was induced and they were intubated with an endotracheal tube. They were then placed into prone position and appropriately padded. They were then prepped and draped in usual sterile fashion. Time-out was performed. Rectal block was performed by injecting 20 mL of Exparel with 40 mL of 0.25% bupivacaine into the intersphincteric groove. An internal examination of the anal canal was made. There were 2 columns of ulcerated congested prolapsing hemorrhoids with both internal and external component in the left lateral and right posterior positions. Each colon was grasped elevated and excised with electrocautery off the internal sphincter. The mucosal defect was then closed with a running 3-0 Vicyrl suture. Hemostasis was checked. The specimens were passed off the field. Wound was irrigated with saline. Gelfoam coated in Dibucaine ointment 1% was then placed into the anal canal. Sponge and instrument counts were correct at the end of the procedure. They emerged from anesthesia were extubated and transferred to the postoperative care unit in stable condition. Complications: none Post-operative Condition: stable Disposition: same day surgery
[2024-02-21 16:00] VITALS: BP 135/75; PULSE 86; RESP 15; O2SAT 99
[2024-02-21] MEDS: ONDANSETRON 4 MG/2 ML INJ IV (16:03)
[2024-02-21] MEDS: METOCLOPRAMIDE 10 MG/2 ML INJ IV (16:04)
[2024-02-21 16:05] VITALS: BP 135/83; PULSE 77; RESP 12; TEMP 36.1; O2SAT 99
[2024-02-21] MEDS: ACETAMINOPHEN 325 MG TABLET 650 MG PO (16:10)
[2024-02-21] MEDS: CODEINE/ACETAMINOPHEN 30/300 TABLET 1 TAB PO (16:10)
[2024-02-21 16:20] VITALS: BP 133/76; PULSE 82; RESP 16; O2SAT 99
== END 2024-02-21 16:30 | disposition home or self-care (01) ==
PROVIDERS: Family Provider Physician Assistant; PCP Family Medicine; Referring Provider Surgery; Visit Provider Surgery
PROC: (CPT 46260; principal; 2024-02-21 15:15)
DX: K64.8 Other hemorrhoids (principal)
CPT/HCPCS: 46260; 81025; C9290; J0171; J1100; J1885; J2405; J2704; J2765; J3010

== ENCOUNTER 2024-04-09 18:11 | Emergency (ER) | payer OTHER, SELFPAY ==
[2024-04-09 18:21] VITALS: BP 140/85; PULSE 73; RESP 16; TEMP 36.5; O2SAT 97; BMI 32.0
--- NOTE | 2024-04-09 19:26 | ED_ITS ---
HPI - Extremity Problem General Chief complaint: Extremity Problem,Nontraumatic Stated complaint: lt leg swelling, sent by [facility] Time Seen by Provider: 04/09/24 18:50 Source: patient Mode of arrival: Ambulatory Limitations: no limitations History of Present Illness HPI Narrative: 49-year-old female sent over from the walk-in clinic for evaluation of swelling to her left lower extremity. She noticed some discomfort in her left leg earlier this week but the swelling started within the past 24 hours. No chest pain or shortness of breath. No trauma. Describes the pain in the back of her calf and behind her left knee. No history of blood clots. Related Data Home Medications Medication Instructions Recorded Confirmed MULTIVITAMIN (Fruity Vitamin) 1 ctb PO Q DAY ##0 07/11/11 02/20/24 levothyroxine 150 mcg capsule 150 mcg PO DAILY 01/08/24 02/21/24 Previous Rx's Medication Instructions Recorded menthol 0.44 %-zinc oxide 20.6 % 1 applic topical Q1H PRN skin 02/12/24 topical paste irritation #57 grams nitroglycerin 0.4 % (w/w) rectal 1 inch OR BID #30 grams 02/12/24 ointment acetaminophen 500 mg capsule 1,000 mg (2 x 500 mg) PO Q6H PRN 02/21/24 pain #60 caps celecoxib 200 mg capsule (Celebrex) 200 mg PO BID #20 caps 02/21/24 oxycodone 5 mg tablet 5 mg PO Q6H PRN pain #20 tabs 02/27/24 Allergies Allergy/AdvReac Type Severity Reaction Status Date / Time benzonatate Allergy Severe Hives Verified 02/21/24 14:19 Sulfa (Sulfonamide Allergy Severe SEVERE RASH Verified 02/21/24 14:19 Antibiotics) [SULFA (SULFONAMIDE ANTIBIOTICS)] Review of Systems Constitutional Constitutional: Reports system reviewed and no additional complaints, except as documented Musculoskeletal Musculoskeletal: Reports system reviewed and no additional complaints, except as documented Integumentary/Breasts Skin/Breast: Reports system reviewed and no additional complaints, except as documented Neurologic Neurologic: Reports system reviewed and no additional complaints, except as documented Patient History Medical History Diverticular disease (Unknown) Hypothyroidism (Unknown) Allergic rhinitis (01/09/11) Surgical History (Updated 02/27/24 @ 16:23 by Krunal Albarado MD) History of hemorrhoidectomy (02/21/24) History of surgery (1974) History of mandibular surgery (1989) History of tonsillectomy Family History Mother Hypothyroidism, unspecified type Essential hypertension Grandfather Myocardial infarction Social History marital status: number of children: 1 household members: spouse and children lives independently: Yes occupational status: employed Smoking Status: Never smoker alcohol intake: current substance use type: does not use Smoking Status: Never smoker alcohol intake frequency: holidays/special occasions only Substance Use Type: does not use Exam Initial Vital Signs Initial Vital Signs: Vital Signs Temperature 97.7 F 04/09/24 18:21 Pulse Rate 73 04/09/24 18:21 Respiratory Rate 16 04/09/24 18:21 Blood Pressure 140/85 04/09/24 18:21 Pulse Oximetry 97 04/09/24 18:21 Oxygen Delivery Method Room Air 04/09/24 18:21 Const General: cooperative, comfortable and No ill appearing HENMT Head: normal to inspection Cardio Pulses: dorsalis pedis present on the left Neuro General: patient alert and patient awake Extrem General: capillary refill normal and edema (Left lower extremity from the knee to the ankle) Course Orders Ordered: ED Orders 04/09/24 19:26 US periph venous low extrem lt Stat Vital Signs Vital signs: Vital Signs - 8 hr 04/09/24 20:15 Pulse Rate 71 Blood Pressure 139/85 Pulse Oximetry 98 Oxygen Delivery Method Room Air MDM - Extremity (Nontraumatic) Imaging Data US - DVT: Radiologist's Impression: PROCEDURE: US PERIPH VENOUS LOW EXTREM LT INDICATIONS: Eval for DVT TECHNIQUE: Real-time imaging, as well as color and pulse Doppler interrogation, were performed of the lower extremity deep veins from the inguinal ligament to the popliteal fossa, with documentation of the visualized calf veins. COMPARISON: None. FINDINGS: The common femoral, femoral, popliteal, and the visualized calf veins are normally compressible, and free of intraluminal thrombus. Color and pulse Doppler demonstrate normal phasic intraluminal flow. There is normal augmentation response to distal compression maneuver. Lower extremity edema is present. IMPRESSION: No findings of lower extremity deep venous thrombosis. MDM Narrative Medical decision making narrative: Ultrasound negative for DVT. No signs of infection. Compartments are soft. Recommended conservative measures to include keeping her leg elevated. Recommended following up with primary doctor. She was given return precautions. Discharge Plan Departure Patient Disposition: Home Clinical Impression: Edema of left lower extremity Instructions: DI for Peripheral Edema-Unilateral Activity Restrictions/Additional Instructions: Continue to take all of your medications as directed. I do recommend that you are up moving around but when you are sitting keeping her leg elevated can be helpful. Contact your primary doctor for a follow-up. Return to the emergency department for new or worsening symptoms. Prescriptions: No Action levothyroxine 150 mcg capsule 150 mcg PO DAILY menthol-zinc oxide 0.44-20.6 % paste 1 applic topical Q1H PRN (Reason: skin irritation) Qty: 57 1RF Rx Instructions: while awake nitroglycerin 0.4 % (w/w) ointment 1 inch OR BID Qty: 30 1RF oxycodone 5 mg tablet 5 mg PO Q6H PRN (Reason: pain) Qty: 20 0RF MULTIVITAMIN (Fruity Vitamin) 1 ctb PO Q DAY Qty: 0 acetaminophen 500 mg capsule 1,000 mg PO Q6H PRN (Reason: pain) Qty: 60 0RF celecoxib [Celebrex] 200 mg capsule 200 mg PO BID Qty: 20 0RF Referrals: Krunal Albarado MD [Primary Care Provider] - Stand Alone Forms: Patient Portal/API
[2024-04-09 20:15] VITALS: BP 139/85; PULSE 71; O2SAT 98
== END 2024-04-09 20:15 | disposition home or self-care (01) ==
PROVIDERS: Emergency Provider Emergency Medicine; Family Provider Physician Assistant; PCP Family Medicine
DX: R60.0 Localized edema (principal)
CPT/HCPCS: 93971; 99281; 99283

== ENCOUNTER → 2024-04-24 09:56 | Outpatient (CLI) | payer OTHER, SELFPAY | PROVIDERS: Family Provider Physician Assistant; PCP Family Medicine; Referring Provider Family Medicine; Visit Provider Family Medicine | DX: R05.3 Chronic cough (principal); U09.9 Post COVID-19 condition, unspecified; R94.2 Abnormal results of pulmonary function studies | CPT/HCPCS: 94060; 94726; 94729 ==

== ENCOUNTER → 2024-06-22 14:56 | Outpatient (CLI) | payer OTHER, SELFPAY ==
--- NOTE | 2024-06-22 14:57 | DI.US.S_ITS ---
PROCEDURE: US VENOUS INSUFFICIENCY BILAT INDICATIONS: Leg Swelling TECHNIQUE: Real time scanning was performed of the lower extremity venous system, with imaging documentation, as well as Color and pulse Doppler interrogation. COMPARISON: None. FINDINGS: RIGHT LOWER EXTREMITY: The deep veins are normally compressible, and free of intraluminal thrombus. Color and pulse Doppler demonstrate normal intravascular flow. There is normal augmentation with distal compression maneuver. The right common femoral vein measures 10 mm in diameter and demonstrates 1.5 - 2 seconds of reflux. Greater saphenous vein (GSV): Normally 4 mm or less in diameter, with any reflux less than 0.5 seconds. Saphenofemoral junction (SFJ): 7-8 mm. There is 1 second of reflux. Proximal GSV: 5 mm. There is 0.9 seconds of reflux. Mid GSV: 4-5 mm. With 0.67 seconds of reflux. There is a branch arising from the right greater saphenous vein which measures 2 mm in diameter which demonstrates near significant reflux lasting 0.48 seconds. Distal GSV: 3 mm. No reflux. However, there is a branch arising from the distal greater saphenous vein measuring 2 mm in diameter which demonstrates 0.66 seconds of reflux. Calf GSV: 4 mm, and adjacent perforating vein measuring 4 mm which does demonstrate reflux of 0.63 seconds, while the calf greater saphenous vein does not demonstrate significant reflux. Anterior accessory GSV (AAGSV): Anatomic variant not present across anterior thigh. Small saphenous vein (SSV): Posterior calf, draining into popliteal vein. Posterior calf: 3 mm. There is a 0.56 seconds of reflux. The popliteal vein measures 7 mm. There is 5.6 seconds of reflux. Vein of Giacomini (posterior thigh connection between GSV and SSV): Anatomic variant not seen. LEFT LOWER EXTREMITY: The deep veins are normally compressible, and free of intraluminal thrombus. Color and pulse Doppler demonstrate normal intravascular flow. There is normal augmentation with distal compression maneuver. The left common femoral vein measures approximately 15 mm in diameter with Valsalva demonstrating 1.24 - 1.68 seconds of reflux. Greater saphenous vein (GSV): Normally 4 mm or less in diameter, with any reflux less than 0.5 seconds. Saphenofemoral junction (SFJ): 11 mm. There is a 1.61 seconds of reflux. Proximal GSV: 5-6 mm. 0.54 seconds of reflux. Mid GSV: 4 mm. No reflux. Distal GSV: 4 mm. No reflux. Calf GSV: To mm. No reflux. However, there is a distal right calf sales agent protective service which measures 2 mm in diameter and demonstrates 0.55 seconds of reflux. Anterior accessory GSV (AAGSV): Anatomic variant is present across anterior thigh. The anterior accessory GSV measures 2 mm in diameter and demonstrates reflux lasting 0.51 seconds. Small saphenous vein (SSV): Posterior calf, draining into popliteal vein. Posterior calf: 1-2 mm. No reflux. Vein of Giacomini (posterior thigh connection between GSV and SSV): Anatomic variant not seen. IMPRESSION: Reflux is seen in the right lower extremity common femoral vein, saphenofemoral junction, proximal and mid greater saphenous vein as well as a perforating vein to the greater saphenous vein in the calf. Additional reflux is seen in the small saphenous vein and popliteal vein. Reflux is seen in the left lower extremity common femoral vein, saphenofemoral junction, proximal greater saphenous vein and anterior accessory greater saphenous vein. Dictated by: Vlad Rodriguez M.D. on 06/23/2024 at 13:41 Approved by: Vlad Rodriguez M.D. on 06/23/2024 at 14:07
== END ==
PROVIDERS: Family Provider Physician Assistant; PCP Family Medicine; Referring Provider Family Medicine; Visit Provider Family Medicine
DX: I87.2 Venous insufficiency (chronic) (peripheral) (principal); R60.0 Localized edema
CPT/HCPCS: 93970

== ENCOUNTER → 2024-08-14 10:01 | Outpatient (CLI) | payer OTHER, SELFPAY ==
--- NOTE | 2024-08-14 10:02 | DI.MG.S_ITS ---
BILATERAL DIGITAL SCREENING MAMMOGRAM 3D/2D WITH CAD: 08/14/2024 CLINICAL: Routine screening. Comparison is made to exams dated: 07/03/2019 mammogram, 04/06/2022 mammogram, 06/30/2018 mammogram - [facility], and 04/27/2016 mammogram - [facility] ([facility] There are scattered areas of fibroglandular density (category b / 25%-50% glandular tissue). Current study was also evaluated with a Computer Aided Detection (CAD) system. No significant masses, calcifications, or other findings are seen in either breast. There has been no significant interval change. IMPRESSION: NEGATIVE There is no mammographic evidence of malignancy. A 1 year screening mammogram is recommended. Based on the Tyrer Cuzick model (a risk assessment model) the patient's lifetime risk is 11.5% and her 10 year risk is 2.7%. According to the ACR, ACS, and NCCN guidelines, an annual breast MRI exam along with mammogram is recommended if the patient's lifetime risk is 20% or greater. This exam was interpreted at Station ID: [id number]. NOTE: For mammograms, a report in lay terms will be sent to the patient. Approximately 15% of breast malignancies will not be visualized mammographically. In the management of a palpable breast mass, a negative mammogram must not discourage biopsy of a clinically suspicious lesion. Electronically Signed By: Octavio morris/florecita:08/14/2024 12:30:14 letter sent: Normal Exam ACR BI-RADS Category 1: Negative
[2024-08-14 11:25] LABS: Free T4, Direct Thyroxine 1.64 ng/dL (0.78-2.19)
[2024-08-14 11:40] LABS: TSH w/ Reflex to FT4 0.33 uIU/mL (0.47-4.68); Thyroid Stimulating Hormone 0.328 uIU/mL (0.47-4.68)
== END ==
PROVIDERS: Family Provider Physician Assistant; PCP Family Medicine; Referring Provider Family Medicine; Visit Provider Family Medicine
DX: Z12.31 Encounter for screening mammogram for malignant neoplasm of breast (principal); E03.9 Hypothyroidism, unspecified
CPT/HCPCS: 36415; 77063; 77067; 84439; 84443

== ENCOUNTER → 2024-08-24 07:48 | Outpatient (CLI) | payer OTHER, SELFPAY ==
[2024-08-24 09:02] LABS: Hematocrit 33.7 % (36-46); Hemoglobin 10.8 g/dL (12.0-16.0); Mean Corpuscular HGB Conc 32.1 % (30-36); Mean Corpuscular Hemoglobin 25.1 PG (26-34); Mean Corpuscular Volume 78.2 fL (80-100); Platelet Count 326 X10^3/uL (150-400); Red Blood Cell Count 4.31 X10^6/uL (4.0-5.2); Red Cell Distribution Width 15.8 % (11.6-14.8); White Blood Cell Count 7.1 X10^3/uL (4.5-11.0)
[2024-08-24 09:15] LABS: Alanine Aminotransferase 18 IU/L (<35); Albumin Globulin Ratio 1.6 (1.0-2.8); Alkaline Phosphatase 54 U/L (38-126); Aspartate Aminotransferase 26 IU/L (14-36); BUN Creatinine Ratio 13.6 (6-22); Bilirubin Total 0.5 mg/dL (0.2-1.3); Blood Urea Nitrogen 11 mg/dL (7-17); Carbon Dioxide 25 mmol/L (22-32); Chloride 108 mmol/L (98-107); Cholesterol 212 mg/dL (140-199); Estimated Glomerular Filt Rate > 60 mL/min (>60); Globulin 2.5 g/dL (1.7-4.1); Glucose 95 mg/dL (70-100); HDL Cholesterol 67 mg/dL (40-60); HEMOLYSIS < 15 (0-50); LDL Cholesterol Calculated 116 mg/dL (<100); Potassium 4.1 mmol/L (3.4-5.1); Sodium 138 mmol/L (137-145); Total Protein 6.5 g/dL (6.3-8.2); Triglycerides 143 mg/dL (35-150)
[2024-08-24 09:33] LABS: Vitamin D 25 Hydroxy (D3) 16.7 ng/mL (30.0-100.0)
== END ==
PROVIDERS: Family Provider Physician Assistant; PCP Family Medicine; Referring Provider Family Medicine; Visit Provider Family Medicine
DX: Z13.21 Encounter for screening for nutritional disorder (principal); E78.2 Mixed hyperlipidemia; R20.0 Anesthesia of skin
CPT/HCPCS: 36415; 80053; 80061; 82306; 85027

== ENCOUNTER → 2025-02-05 15:22 | Outpatient (CLI) | payer OTHER, SELFPAY ==
--- NOTE | 2025-02-05 15:23 | DI.US.S_ITS ---
PROCEDURE: US PELVIC COMPLETE INDICATIONS: heavy menses w/large clots, assess structural etiology TECHNIQUE: Real-time scanning was performed of the pelvic organs, with image documentation. Additional endovaginal scanning was necessary due to incomplete visualization of the adnexal and endometrial structures by transabdominal scanning. COMPARISON: [facility], US, PELVIC COMPLETE, 10/21/2014, 15:37. FINDINGS: Uterus: Uterus is anteverted and enlarged measuring 13.1 x 11.1 x 10.1. The myometrium is very heterogeneous, with echogenic lines. The endometrium measures 23 mm combined thickness. There is a solid lesion in the midbody peripherally measuring 5.2 x 5.8 x 7.4 cm. Ovaries: Not seen bilaterally Other: No pathologic free abdominal or pelvic fluid. IMPRESSION: 1. Enlarged, very heterogeneous uterus, suggestive of adenomyosis. 2. A focal lesion in the midbody measuring up to 7.4 cm may represent fibroid or adenomyoma, can be further assessed with MRI. 3. Nonvisualization of either ovary. No adnexal mass or pelvic free fluid is seen. We strive to produce accurate, complete, and clear reports of imaging services. To assist us in improving patient care, this report was composed using standard report templates and voice recognition software. Therefore, it may contain abnormal punctuation, insertions and/or omissions. Occasional wrong-word or sound-alike substitutions may occur. Though we review the report and make efforts to correct it, we do recommend that the report be read carefully in proper context to recognize any text inaccuracies. Dictated by: Shaw Skinner M.D. on 02/06/2025 at 20:32 Approved by: Shaw Skinner M.D. on 02/06/2025 at 20:35
[2025-02-05 17:15] LABS: Hematocrit 41.3 % (36-46); Hemoglobin 13.7 g/dL (12.0-16.0); Mean Corpuscular HGB Conc 33.3 % (30-36); Mean Corpuscular Hemoglobin 29.2 PG (26-34); Mean Corpuscular Volume 87.7 fL (80-100); Platelet Count 246 X10^3/uL (150-400); Red Blood Cell Count 4.71 X10^6/uL (4.0-5.2); Red Cell Distribution Width 14.2 % (11.6-14.8); White Blood Cell Count 8.4 X10^3/uL (4.5-11.0)
[2025-02-05 17:27] LABS: Prothrombin Time 11.4 SECONDS (9.4-12.5)
[2025-02-05 17:36] LABS: HEMOLYSIS < 15 (0-50); Iron 64 ug/dL (37-170)
[2025-02-05 17:48] LABS: Percent Iron Saturation 21 % (15-50); Total Iron Binding Capacity 308 ug/dL (265-497); Transferrin 257 mg/dL (206-381)
[2025-02-05 17:56] LABS: Vitamin D 25 Hydroxy (D3) 26.8 ng/mL (30.0-100.0)
[2025-02-05 18:08] LABS: Thyroid Stimulating Hormone 1.82 uIU/mL (0.47-4.68)
[2025-02-05 18:14] LABS: Ferritin 8 ng/mL (11-264)
[2025-02-05 18:28] LABS: Vitamin B12 741 pg/mL (239-931)
[2025-02-10 17:36] LABS: Factor VIII Activity, Clotting 193 % (56-140); Von Willebrand Factor Antigen 206 % (50-200); von Willebrand Factor Activity 205 % (50-200)
== END ==
PROVIDERS: Family Provider Physician Assistant; PCP Family Medicine; Referring Provider Family Medicine; Visit Provider Family Medicine
DX: N92.0 Excessive and frequent menstruation with regular cycle (principal); N88.2 Stricture and stenosis of cervix uteri; N85.2 Hypertrophy of uterus; N85.9 Noninflammatory disorder of uterus, unspecified; D64.9 Anemia, unspecified; E03.9 Hypothyroidism, unspecified; E78.5 Hyperlipidemia, unspecified; Z78.9 Other specified health status; E55.9 Vitamin D deficiency, unspecified
CPT/HCPCS: 36415; 76830; 76856; 82306; 82607; 82728; 83540; 83550; 84436; 84443; 84481; 85027; 85240; 85245; 85246; 85610

== ENCOUNTER 2025-05-06 09:10 | Day surgery (SDC) | payer OTHER, SELFPAY ==
[2025-04-30 09:02] VITALS: BMI 27.7
[2025-05-06] VITALS (9 sets, daily range): BP systolic 105–125; BP diastolic 55–83; PULSE 57–78; RESP 12–18; TEMP 35.5–36.8; O2SAT 93–100; BMI 27.7
--- NOTE | 2025-05-06 | PATH_ITS ---
[facility] Accession Number: [id number] No. of containers..01 Tissue . 01 Material submitted: . uterus - CERVIX, UTERUS, BILATERAL TUBES . 01 Diagnosis: CERVIX, UTERUS, BILATERAL TUBES; HYSTERECTOMY AND BILATERAL SALPINGECTOMY: Uterine weight 770 grams. Cervix: Benign, with microglandular hyperplasia and prominent nabothian cysts; negative for dysplasia or malignancy. Endometrium: Secretory phase endometrium; negative for atypia, hyperplasia, or malignancy. Myometrium: Extensive adenomyosis and benign intramural leiomyoma. Serosal adhesions present. Bilateral fallopian tubes without pathologic abnormalities. MRV 05/13/2025 1629 Local . 01 Electronically signed: . Sulema Beavers MD, Pathologist NPI- [id number] . 01 Gross description: . The specimen is received in formalin with two patient identifiers and cervix, uterus, bilateral tubes, and consists of a morcellated and severely fragmented uterus, detached cervix, and two detached, fimbriated fallopian tubes. The uterine corpus aggregates 30 x 20 x 4.5 cm (770 grams) and is surfaced by a smooth glistening serosa with focal areas of fibrous adhesions. The myometrial wall is markedly trabeculated and measures up to 5.2 cm in thickness. There is a 0.8 cm in greatest dimension white whorled, well-circumscribed nodule. No additional distinct nodules are appreciated. The endometrial lining is extremely challenging to ascertain and focal areas of possible endometrial lining average 0.2 cm in thickness and are surfaced by a hays-red, finely granular mucosa. No endometrial lesions are identified. The detached cervix measures 3.0 x 2.5 x 1.1 cm and is surfaced by a smooth white glistening ectocervix. There is a 1.4 cm slit-like patient os, and sectioning shows a hays, trabeculated endocervical canal free of exophytic lesions. In addition, there are multiple endocervical cysts ranging from 0.4 cm up to 1.1 cm in greatest dimension. These cysts are filled with clear to mucoid material. The first detached fimbriated fallopian tube measures 5.5 cm in length by 0.4 cm in diameter and has a smooth hays-pink serosal surface. Sectioning shows a 0.3 cm unremarkable stellate lumen. The second detached fimbriated fallopian tube measures 4.5 cm in length by 0.4 cm in diameter and is surfaced by a smooth hays-purple serosal surface. Sectioning of the tube shows a 0.3 cm unremarkable stellate lumen. Optical Lathe Operator sections are submitted as follows: . A1-A2: Cervix. A3-A4: Possible endometrium and myometrial sections. A5: Distinct myometrial nodule. A6: Additional sections of trabeculated myometrium. A7: Fallopian tube 1 to include entire fimbriated end. A8: Fallopian tube 2 to include entire fimbriated end. ([id number]) /MRV 05/08/2025 [facility]4 Local . 01 Pathologist provided ICD-10: N80.03, D25.0 . 01 CPT . 316161 Specimen Comment: A courtesy copy of this report has been sent to [phone] Performed at: [address] [facility] [address], [place], [place] [id number] MD Vlad Felix MD Phone: [phone]
[2025-05-06] MEDS: SCOPOLAMINE 1 PATCH TOP (09:47)
[2025-05-06] MEDS: LACTATED RINGERS 1,000 ML 42 ML IV ×3 (09:47→15:50)
[2025-05-06] MEDS: FAMOTIDINE 20 MG/2 ML VIAL IV (09:47)
[2025-05-06] MEDS: ACETAMINOPHEN IV 1,000 MG/100 ML VIAL 400 MG IV (09:47)
--- NOTE | 2025-05-06 11:40 | PM.PREOP ---
Pre-operative Note COVID-19 COVID-19 status: Not tested Interval Note History & Physical reviewed/Exam performed by Physician: Yes Changes to H&P: No
--- NOTE | 2025-05-06 12:00 | SUR.OPER ---
Lithotomy on padded OR bed. [place] Pad Positioner under torso. Head on pillow, arms padded and tucked at sides in purple foam. IV sites padded. upper body secured with purple safety strap. Legs secured in padded yellow fins stirrups.
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
[2025-05-06] MEDS: KETOROLAC 30 MG/ML VIAL IV (18:19)
[2025-05-06] MEDS: LACTATED RINGERS 1,000 ML 100 ML IV (18:19)
[2025-05-06] MEDS: ACETAMINOPHEN 325 MG TABLET 650 MG PO (20:53)
[2025-05-06] MEDS: DOCUSATE 100 MG CAPSULE 200 MG PO (20:53)
[2025-05-06] MEDS: ONDANSETRON 4 MG/2 ML INJ IV (20:53)
[2025-05-07] VITALS: BP 102/55; PULSE 72; RESP 18; TEMP 36.6; O2SAT 94
[2025-05-07] MEDS: KETOROLAC 30 MG/ML VIAL IV ×2 (00:55→05:33)
[2025-05-07] MEDS: ONDANSETRON 4 MG/2 ML INJ IV ×2 (01:00→05:33)
[2025-05-07] MEDS: LACTATED RINGERS 1,000 ML 100 ML IV (03:18)
[2025-05-07] MEDS: LEVOTHYROXINE 75 MCG TABLET 150 MCG PO (05:33)
[2025-05-07 05:54] LABS: Add Manual Diff / Slide Review NO; Hematocrit 32.8 % (36-46); Hemoglobin 10.9 g/dL (12.0-16.0); Lymphocytes Absolute Auto 1200 /uL (1100-4500); Mean Corpuscular HGB Conc 33.4 % (30-36); Mean Corpuscular Hemoglobin 29.4 PG (26-34); Mean Corpuscular Volume 88.2 fL (80-100); Platelet Count 241 X10^3/uL (150-400)
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
[2025-05-07] MEDS: DOCUSATE 100 MG CAPSULE 200 MG PO (08:06)
[2025-05-07] MEDS: ACETAMINOPHEN 325 MG TABLET 650 MG PO (08:06)
--- NOTE | 2025-05-07 10:37 | CM.DANOTE ---
DCP Assessment Note: Pt is a 50yo female, resident of [place], is s/p Lap total hysterectomy. Pt lives in a house with her spouse and children. Pt's Primary Care Provider is Dr. Krunal Albarado and insurance is [employer]. Reviewed chart and discussed with multidisciplinary team pt's medical status and initial discharge needs. DCP met w/patient at bedside; introduced self and role. Patient was found in bed, alert and oriented, cooperative with assessment. Pt confirmed living situation and good support in family. Pt expressed preference in discharge home as soon as possible. Pt has no history of SNF or Home health. Pt declined any needs for discharge. Patient states her spouse, Nate, will transport her home. . Plan: Discharge orders in, pt to discharge home with spouse to transport on 05/07. CM team will follow closely for coordination of discharge plans. Alana Chauhan [facility] Discharge Planning/Care Management CM Discharge Assessment Start: 05/06/25 09:18 Freq: Status: Active Protocol: Document 05/07/25 10:35 MW (Rec: 05/07/25 10:37 MW [id number]) Discharge Planning Assessment Assigned Discharge DONALD Warner [employer] Salesperson Provider Krunal Albarado Insurance Other (enter in Comment) Insurance Comment [employer] DPOA/Assigned Nate Bowen Designee Name Contact Information [phone] Advance Directives? No History Provided By Patient,Significant Other Has Patient been No admitted in last 30 days? Prior Living House Arrangements Household Members spouse,children Type of Drives own vehicle transporation used prior to admit Independent with ADL Yes 's Is patient alert and Yes oriented? Discharge Plan Home Transportation Nate Arrangement Referrals Initiated None needed Review Status In Process Please Provide Date 05/07/25 Initial DC Assessment Was Performed Next Review Type Continued Stay Review
--- NOTE | 2025-05-07 11:05 | PC.NURSE ---
Day shft: Paperwork signed and all questions answered. Has all personal belongings. The 5 lap sites remains CDI. Pain well controlled per MAR. Pt did void 200 mls post [place]wey and bladder scan said 13 mls left. Spouse in room for teachings. New scripts sent to Pt's pharmacy electronic. Left unit via WC at approx 1115. Spouse is driving her home.
== END 2025-05-07 11:08 | disposition home or self-care (01) ==
LOC: OR 09:11 → AC 09:11
PROVIDERS: Family Provider Physician Assistant; PCP Family Medicine; Referring Provider Obstetrics & Gynecology; Visit Provider Obstetrics & Gynecology
PROC: 0UT94ZZ Resection of Uterus, Percutaneous Endoscopic Approach (ICD-10-PCS; CPT 58573; principal; 2025-05-06 10:45)
DX: N80.03 Adenomyosis of the uterus (principal); N92.1 Excessive and frequent menstruation with irregular cycle; N88.8 Other specified noninflammatory disorders of cervix uteri; D25.1 Intramural leiomyoma of uterus; N73.6 Female pelvic peritoneal adhesions (postinfective)
CPT/HCPCS: 58573; S2900; 36415; 58571; 85025; J0131; J0689; J1100; J1171; J1885; J2250; J2405; J2704; J3010